=== PATIENT | female | born 1955 | race Caucasian/White ===

== ENCOUNTER 2024-09-12 13:35 | Outpatient (AMB) | payer BC, SELFPAY ==
--- NOTE | 2024-09-12 14:11 | MHC.OFFVIS ---
Vital Signs 09/12/24 14:31 Height 5 ft 5 in Weight 222 lb 10.67 oz BMI 37.0 BP 140/90 H Blood Pressure Location Lt brachial Position Sitting Respiration 16 Pulse 64 Pulse Source Pulse Oximeter Pulse Oximetry (%) 95 Oxygen Delivery Method Room Air Intake Visit Reasons: CTS/Arth/ATC MR RECIEVED Intake Note: Patient presents for CTS and Arthritis. My Arthiritis is about the same with pain level but both heels are more painful, especially my left heel. Allergies bivalves Allergy (Severe, Uncoded 09/12/24 14:21) Vomiting HPI HPI CTS/Arth/ATC MR RECIEVED: Details: Completed OT. Pain in dorsal hands radiating to elbows resolved with change in diet fobmat. [facility] PT initially improved lower back pain but then she plateaued. She is planning RFA. Hard to walk more than 15 minutes at a time. Working out 3 times a week. She has a personal property appraiser and is participating in physical therapy. When she was away on vacation is really she started experiencing bilateral heel pain. She reports that she has a new pair of shoes. She has constant heel pain currently. No joint swelling. [facility] Family History (Updated 09/12/24 @ 14:56 by YASMINE De Souza) Maternal Grandfather Rheumatoid arthritis Paternal Grandmother Osteoarthritis Social History (Updated 09/12/24 @ 14:31 by YASMINE De Souza) Household Members: Spouse Housing: House Alcohol intake: former Comment: OCC Patient Tobacco Use Status: Never used Tobacco Review of Systems Const All systems reviewed & are unremarkable except as noted in HPI and below Physical Exam Vital Signs: Last Vital Signs Pulse 64 09/12/24 14:31 Resp 16 09/12/24 14:31 BP 140/90 H 09/12/24 14:31 Pulse Ox 95 09/12/24 14:31 Oxygen Delivery Method Room Air 09/12/24 14:31 BMI result Body Mass Index 37.0 Const Other: General: Comfortable, obese. Skin: No lesions seen MSK: Tender to palpate bilateral heels localized to plantar aponeurosis. No ankle swelling noticed. No tenderness of midfoot. Paste planus noted bilateral. Assessment & Plan Assessment & Plan (1) Heel pain, bilateral: Comment: Chronic. Suspect heel spur is contributing. We discussed conservative management Code(s): M79.671 - Pain in right foot; M79.672 - Pain in left foot Category: Medical Plan: X-ray bilateral feet ordered She will rotate shoes Recommend [id number] inserts Labs for drug monitoring chronic NSAID ordered. After lab results are reviewed, I will change Celebrex back to meloxicam 15 mg daily I have asked her to communicate with her personal property appraiser and physical therapist about obtaining exercises for heel stretches Return to clinic in 3 months (2) Lumbar spondylolysis: Comment: Currently plateaued with physical therapy. She is working with [facility] with plan for radiofrequency ablation to better control pain and enable ambulating longer distances. Code(s): M43.06 - Spondylolysis, lumbar region Category: Medical Plan: Follow-up with [facility] with plan to try radiofrequency ablation Plan to change Celebrex back to meloxicam 15 mg daily after labs are reviewed for drug monitoring Continue home exercise program, working with physical therapist and personal property appraiser Encouraged weight loss. I recommend that she follow up with PCP for consideration of referral to weight management program at [facility] or [facility]. She did not have a good encounter with recent purchasing intern referral. 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) use of non-steroidal anti-inflammatories (NSAID) Creatinine Today M43.06 - Spondylolysis, lumbar region, Z79.1 - 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
[2024-09-12 14:31] VITALS: BP 140/90; PULSE 64; RESP 16; O2SAT 95; BMI 37.0
== END 2024-09-12 15:21 | disposition home or self-care (01) ==
PROVIDERS: PCP Internal Medicine; Visit Provider Internal Medicine Rheumatology
DX: M79.671 Pain in right foot (principal); M79.672 Pain in left foot; M43.06 Spondylolysis, lumbar region; Z79.1 Long term (current) use of non-steroidal anti-inflammatories (NSAID)
CPT/HCPCS: 99214

== ENCOUNTER → 2024-09-12 13:35 | Outpatient (BNVA) | payer BC, SELFPAY | PROVIDERS: PCP Internal Medicine; Visit Provider Internal Medicine Rheumatology ==

== ENCOUNTER 2024-09-22 10:06 | Outpatient (REF) | payer BC, SELFPAY ==
[2024-09-22 10:21] LABS: MANUAL DIFF FLAG NO
[2024-09-22 10:41] LABS: Basophils Percent Auto 0.4 % (0-2); Eosinophils Percent Auto 0.6 % (0-4); Hemoglobin 13.3 g/dl (12.0-16.0); Imm Gran Abs Auto 0.02 X10*3/uL (0.00-0.03); Imm Gran Pct Auto 0.4 % (0.0-0.4); Lymphocytes Absolute Auto 1.7 X10*3/uL (1.2-4.9); Lymphocytes Percent Auto 34.6 % (20-40); Mean Corpuscular HGB Conc 34.1 g/dl (31.0-35.0); Mean Corpuscular Hemoglobin 32.2 pg (27.0-33.0); Mean Corpuscular Volume 94.4 fL (80.0-98.0); Mean Platelet Volume 9.4 fL (9.4-12.3); Monocytes Absolute Auto 0.4 X10*3/uL (0.1-1.2); Monocytes Percent Auto 8.5 % (2-11); Neutrophils Absolute Auto 2.7 x10*3/uL (2.0-8.3); Neutrophils Percent Auto 55.5 % (45-73); Platelet Count 169 X10*3/uL (160-400); Red Blood Count 4.13 X10*6/uL (4.20-5.50); Red Cell Distribution Width 11.5 % (11.0-16.0); White Blood Count 4.8 X10*3/uL (4.8-10.8)
[2024-09-22 11:55] LABS: Alanine Aminotransferase 43 U/L (0-31); Aspartate Amino Transferase 32 U/L (5-31); Estimated Glomerular Filt Rate > 60
== END 2024-09-22 10:07 | disposition home or self-care (01) ==
LOC: HO.XRAY 10:06
PROVIDERS: PCP Internal Medicine; Visit Provider Internal Medicine Rheumatology
DX: M79.671 Pain in right foot (principal); M79.672 Pain in left foot; M43.06 Spondylolysis, lumbar region; Z79.1 Long term (current) use of non-steroidal anti-inflammatories (NSAID)
CPT/HCPCS: 36415; 73620; 82565; 84450; 84460; 85025

== ENCOUNTER 2024-12-13 14:02 | Outpatient (AMB) | payer BC, SELFPAY ==
--- NOTE | 2024-12-13 14:02 | A.OFFVIS_ITS ---
Vital Signs 12/13/24 14:03 Height 5 ft 5 in Weight 198 lb 13.711 oz BMI 33.1 BP 90/82 Blood Pressure Location Lt brachial Position Sitting Pulse 87 Pulse Source Pulse Oximeter Pulse Oximetry (%) 98 Oxygen Delivery Method Room Air Intake Visit Reasons: Follow Up 3mo Intake Note: Patient presents for CTS and Arthritis. Accompanied by: Self / Same As Patient Allergies bivalves Allergy (Severe, Uncoded 09/12/24 14:21) Vomiting HPI HPI Follow Up 3mo: Details: She continues to have back pain and foot pain limiting ambulation. At rest her pain is 2/10. When she walks her pain is 6/10. She has been having pain in her fingers and difficulty with mobility. She has been doing exercises that she learned from OT in the past. Diclofenac gel was ineffective. She is using hemp cream with benefit. Heat applied to hands helps but it is temporary. [facility] Family History Maternal Grandfather Rheumatoid arthritis Paternal Grandmother Osteoarthritis Social History Household Members: Spouse Housing: House Alcohol intake: former Comment: OCC Patient Tobacco Use Status: Never used Tobacco Review of Systems Const All systems reviewed & are unremarkable except as noted in HPI and below Physical Exam Vital Signs: Last Vital Signs Pulse 87 12/13/24 14:03 BP 90/82 12/13/24 14:03 Pulse Ox 98 12/13/24 14:03 Oxygen Delivery Method Room Air 12/13/24 14:03 BMI result Body Mass Index 33.1 Const Other: General: Comfortable, obese. Skin: No lesions seen MSK: Tender to palpate bilateral heels localized to plantar aponeurosis. No synovitis. No MTP tenderness. Pes planus noted bilateral. Tender right 2nd to 3rd PIP with slight synovitis present. Olya's nodes and Heberden nodes present. Results Reviewed Results Reviewed: Date of Service: 09/22/24 Procedure(s): XR foot LT 2V Accession Number(s): [id number] cc: NICKIE ROBLES MD; Gilbert Whelan MD~ EXAMINATION: XR BILATERAL FEET CLINICAL INFORMATION: Pain in right foot M79.671. Heel pain. LEFT foot pain. COMPARISON: None available. TECHNIQUE: AP, lateral, and oblique views of each foot. FINDINGS: RIGHT FOOT: Diffuse demineralization. Advanced degenerative changes in the first metatarsophalangeal joint with joint space narrowing and hypertrophic change. Degenerative changes in the interphalangeal joint of the toes, although visualization limited due to flexion of the second, third, fourth and fifth toes. Small dorsal and plantar calcaneal spurs. Fixation plate and screws incompletely imaged in the distal fibula and could be evaluated with dedicated views of the ankle/fibula. Moderate degenerative changes in the tarsometatarsal joints. LEFT FOOT: Diffuse demineralization. Advanced degenerative changes in the first metatarsophalangeal joint with joint space narrowing and hypertrophic change. Degenerative changes in the interphalangeal joint of the toes, although visualization limited due to flexion of the second, third, fourth and fifth toes. Small dorsal and plantar calcaneal spurs. Moderate degenerative changes in the tarsometatarsal joints. XR/XR foot LT 2V IMPRESSION: 1. Advanced degenerative changes bilateral first metatarsophalangeal joints. 2. Small bilateral dorsal and plantar calcaneal spurs. 3. Moderate degenerative changes in the tarsometatarsal joints bilaterally. 4. Fixation plate and screws incompletely imaged in the distal right fibula and could be evaluated with dedicated views of the ankle/fibula. Assessment & Plan Assessment & Plan (1) Transaminitis: Comment: Mild on 09/06/2024 labs. She reports that she has history of fatty liver. Unknown baseline liver function tests. Code(s): R74.01 - Elevation of levels of liver transaminase levels Category: Medical Plan: Patient will follow up with PCP in regards to prior liver function test results. 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 She has bilateral degenerative changes affecting 1st metatarsal joints, and tarsometatarsal joints. She also has bilateral dorsal plantar calcaneal spurs. Discussed diagnosis and conservative management. Code(s): M19.071 - Primary osteoarthritis, right ankle and foot; M19.072 - Primary osteoarthritis, left ankle and foot Category: Medical Plan: PT ordered to improve strength in feet and maintain mobility Wear supportive footwear. I recommend that she see second butler for custom insoles. Return to clinic in 3 months (3) Heel spur: Comment: Bilateral Code(s): M77.30 - Calcaneal spur, unspecified foot Category: Medical Qualifiers: Laterality: unspecified laterality Qualified Code(s): M77.30 - Calcaneal spur, unspecified foot Plan: Encouraged supportive footwear. I recommended custom insoles. She will see second butler for custom insoles. PT ordered Return to clinic in 3 months (4) Lumbar spondylolysis: Comment: Currently plateaued benefit with physical therapy. She is working with [facility] with plan for radiofrequency ablation to better control pain and enable ambulating longer distances. I encouraged her to schedule appointment to try procedure to better control pain so she could ambulate and walk longer distances. At this time she requires assistive aids with walker to ambulate and can not walk more than 2 blocks. She discontinued Celebrex and meloxicam, which improved IBD symptoms. She takes ibuprofen as needed for pain control. Code(s): M43.06 - Spondylolysis, lumbar region Category: Medical Plan: Follow-up with [facility] with plan to try radiofrequency ablation She will take ibuprofen as needed for pain control. If pain worsens, can consider alternative NSAID. Meloxicam and Celebrex exacerbated IBD. She is on PPI pantoprazole 40 mg daily and takes cholestyramine. Continue home exercise program, working with physical therapist and personal protection specialist Encouraged weight loss. She is currently working with PCP for weight loss and has recently started Wegovy. She has lost 20 lb. 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 Pain is uncontrolled despite diclofenac gel 1% and applying heat to hands. She continues to do exercises learned from OT in the past. Code(s): M19.041 - Primary osteoarthritis, right hand; M19.042 - Primary osteoarthritis, left hand Category: Medical Qualifiers: Osteoarthritis type: primary Qualified Code(s): M19.041 - Primary osteoarthritis, right hand; M19.042 - Primary osteoarthritis, left hand Plan: She will take ibuprofen 600 mg Q 8 hourly for a couple of days to reduce pain and swelling of joints. 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
[2024-12-13 14:03] VITALS: BP 90/82; PULSE 87; O2SAT 98; BMI 33.1
== END 2024-12-13 14:50 | disposition home or self-care (01) ==
PROVIDERS: PCP Internal Medicine; Visit Provider Internal Medicine Rheumatology
DX: R74.01 Elevation of levels of liver transaminase levels (principal); M19.071 Primary osteoarthritis, right ankle and foot; M19.072 Primary osteoarthritis, left ankle and foot; M77.30 Calcaneal spur, unspecified foot; M43.06 Spondylolysis, lumbar region; Z79.1 Long term (current) use of non-steroidal anti-inflammatories (NSAID); M19.041 Primary osteoarthritis, right hand; M19.042 Primary osteoarthritis, left hand
CPT/HCPCS: 99214

== ENCOUNTER 2024-12-13 14:02 | Outpatient (REF) | payer BC, SELFPAY ==
[2024-12-13 18:55] LABS: Alanine Aminotransferase 36 U/L (0-31); Albumin Level 4.6 g/dL (3.5-5.0); Alkaline Phosphatase 73 U/L (39-117); Aspartate Amino Transferase 30 U/L (5-31); Bilirubin Direct 0.3 mg/dL (0.0-0.5); Bilirubin Total 0.9 mg/dL (0.0-1.0); Total Protein 7.4 g/dL (6.5-8.0)
== END 2024-12-13 14:03 | disposition home or self-care (01) ==
LOC: HO.HKASLDS 14:02
PROVIDERS: PCP Internal Medicine; Visit Provider Internal Medicine Rheumatology
DX: R74.01 Elevation of levels of liver transaminase levels (principal)
CPT/HCPCS: 36415; 80076

== ENCOUNTER 2025-03-13 13:50 | Outpatient (AMB) | payer BC, SELFPAY ==
--- NOTE | 2025-03-13 13:52 | MHC.OFFVIS ---
Vital Signs 03/13/25 13:53 Height 5 ft 5 in Weight 180 lb 4 oz BMI 30.0 BP 120/82 Blood Pressure Location Rt brachial Position Sitting Pulse 86 Pulse Source Pulse Oximeter Pulse Oximetry (%) 98 Oxygen Delivery Method Room Air Intake Visit Reasons: 3 Months Intake Note: Patient presents for CTS and Arthritis. Accompanied by: Self / Same As Patient Allergies bivalves Allergy (Severe, Uncoded 09/12/24 14:21) Vomiting HPI HPI 3 Months: Details: Lost 45lb with zepbound. Pain in joints have improved. Uses tylenol 2 650mg x 2 every 8 hours. Takes 1 ibuprofen daily. She has new orthotics. PT called 3 weeks ago to schedule but she has not booked PT. [facility] Family History Maternal Grandfather Rheumatoid arthritis Paternal Grandmother Osteoarthritis Social History Household Members: Spouse Housing: House Alcohol intake: former Comment: OCC Patient Tobacco Use Status: Never used Tobacco Physical Exam Vital Signs: Last Vital Signs Pulse 86 03/13/25 13:53 BP 120/82 03/13/25 13:53 Pulse Ox 98 03/13/25 13:53 Oxygen Delivery Method Room Air 03/13/25 13:53 BMI result Body Mass Index 30.0 Const Other: General: Comfortable, obese. Skin: No lesions seen MSK: No synovitis. No MTP tenderness. Pes planus noted bilateral. She has slight synovitis present right 2nd to 3rd MTPs without pain on palpation. Olya's nodes and Heberden nodes present. 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 She recently received orthotics. She has slight synovitis of right 2nd and 3rd MTP without pain, which I am monitoring. If she continues to have synovitis next visit, I will pursue workup for inflammatory arthritis. Code(s): M19.071 - Primary osteoarthritis, right ankle and foot; M19.072 - Primary osteoarthritis, left ankle and foot Category: Medical Plan: If she does not have benefit with new orthotics, she will schedule PT ordered last visit to improve strength in feet and maintain mobility Wear supportive footwear with orthotics Return to clinic in 6 months (2) Heel spur: Comment: Bilateral. Code(s): M77.30 - Calcaneal spur, unspecified foot Category: Medical Qualifiers: Laterality: unspecified laterality Qualified Code(s): M77.30 - Calcaneal spur, unspecified foot Plan: Encouraged supportive footwear. She recently received orthotics. She will contact physical therapy to schedule appointment if she continues to have foot pain after giving orthotics time Return to clinic in 6 months (3) Lumbar spondylolysis: Comment: Constant, chronic back pain. Plateaued benefit with physical therapy. She is working with [facility] with plan for radiofrequency ablation to better control pain and enable ambulating longer distances but is holding plan at this time as she has been losing weight with bound. She hopes to lose 35 more lb and reassess lower back pain. Failed Celebrex and meloxicam, which exacerbated IBD. She takes Tylenol 1300 mg Q 8 hourly and ibuprofen as needed for pain control. Since losing weight, she has not required nabumetone. Code(s): M43.06 - Spondylolysis, lumbar region Category: Medical Plan: She will try to reduce Tylenol dose to 1 tablet every 8 hours prn pain Follow-up with [facility] if she would like to pursue radiofrequency ablation She will take ibuprofen as needed for pain control Continue weight loss management with PCP (4) halfway (current) use of non-steroidal anti-inflammatories (nsaid): Comment: She uses ibuprofen as needed Code(s): Z79.1 - halfway (current) use of non-steroidal anti-inflammatories (NSAID) Category: Medical Plan: Follow up with PCP in regards to transaminitis (5) Osteoarthritis of hands, bilateral: Comment: Clinical osteoarthritis diagnosis. Stable. Failed diclofenac gel. She continues to do exercises learned from OT in the past. 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
[2025-03-13 13:53] VITALS: BP 120/82; PULSE 86; O2SAT 98
--- OUTSIDE RECORDS SUMMARY | 2025-03-13 14:07 | XMS_ITS | Patient Health Record ---
Author Organization [facility] Address [address] [address] Care Team Providers Care Screen Printing Inspector Name Role Phone Kalyan Thomason Primary Care Provider BRICE Hough Unavailable [phone] Allergies Allergen (clinical drug ingredient) Drug/Non Drug Allergy documented on EMR Reaction Allergy Type Onset Date Status bivalves (uncoded) Unknown Allergy A ctive seasonal (uncoded) Unknown Allergy A ctive Reason For Referral No Information Medications Medication SIG (Take, Route, Frequency, Duration) Notes Start Date End Date Status Nabumetone Active Tylenol 8 Hour Arthritis Pain Active Cholestyramine 4 GM/DOSE 1 scoop mixed w ith water or non-carbonated drink Orally Once a day Active Vitamin D Active Multivitamin Active Probiotic Active Calcium Active Pantoprazole Sodium Active Lisinopril 40 MG 1 tablet Orally Once a day Active Zepbound Active PROzac 20 MG 1 capsule Orally Onc e a day Active Atorvastatin Calcium 40 MG 1 tablet Oral ly Once a day Active Problems Problem Type SNOMED Code ICD Code Onset Dates Problem Status W/U Status Risk Notes Problem [id number] Hallux rigidus, right foot (M20.21) Active confirmed Problem [id number] Hallux rigidus, left foot (M20.22) Active confirmed Problem [id number] 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) Active confirmed Problem [id number] 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) Active confirmed Vital Signs Height 5ft 6in in 01/11/2025 Weight 198.4 lbs 01/11/2025 BMI 32.02 kg/m2 01/11/2025 Encounters Encounter Location Date Provider Diagnosis [facility] [address] [address] 01/11/2025 BRICE DE LUNA Hallux rigidus, righ t foot M20.21 ; Hallux rigidus, left foot M20.22 ; Osteoarthritis of right subtalar joint M19.071 ; Osteoarthritis of left subtalar joint M19.072 and Arthrosis of midfoot, unspecified laterality M19.079 [facility] [address] [facility] [address] [place] [address] 01/12/2025 BRICE DE LUNA Assessments Encounter Date Diagnosis (ICD Code) Assessment Notes Treatment Notes Treatment Clinical Notes Section Notes 01/11/2025 Hallux rigidus, right foot (ICD-10 - M20.21) This is an outpatient visit for evaluation and management of an new patient, which required appropriate review of pertinent medical history, review of any previous imaging, review of all previous records, and examination and decision-making. Time was 45 minutes spent in review of all these facets including face to face discussion with the patient regarding my findings and in discussion of a current and future treatment plan. Three weightbearing radiographs of the right and left foot taken and reviewed. She has diffuse arthritic changes to both feet. Most notable around the 1st MTPJ and the subtalar joint. I discussed with her conservative options are better support and pain control. I discussed custom orthotics would help with the forefoot arthrosis, but not the rearfoot arthrosis. I discussed AFOs would help with both, but would be quite bulky in the shoe gear. She wished to proceed with orthotics. I discussed that this is an out of pocket cost. She understood. I will set this up with prosthetic and orthotics for her. She will continue follow up with rheum for pain management of the diffuse arthritic symptoms. I will see her back once she has the inserts. I encouraged her to call with any additional questions or concerns. 01/11/2025 Hallux rigidus, left foot (ICD-10 - M20.22) 01/11/2025 Osteoarthritis of right subtalar joint (ICD-10 - M19.071) 01/11/2025 Osteoarthritis of left subtalar joint (ICD-10 - M19.072) 01/11/2025 Arthrosis of midfoot, unspecified laterality (ICD-10 - M19.079) Plan Of Treatment No Information Medical (General) History Medical History History ICD Code Diffuse arthrosis of multiple areas high blood pressure high cholesterol depression IBS hiatal hernia post-cholecystectomy syndrome Osteoporosis Compression fracture of L1 and L4 GERD Surgical History Surgery Date(Month/Year) RT ankle ORIF LT knee replacement gall bladder removal Hospitalization History Reason Date(Month/Year) Gallbladder rupture with necrosis and pe ritonitis 07/2022
== END 2025-03-13 14:49 | disposition home or self-care (01) ==
LOC: HO.RHES 13:51
PROVIDERS: PCP Internal Medicine; Visit Provider Internal Medicine Rheumatology
DX: M19.071 Primary osteoarthritis, right ankle and foot (principal); M19.072 Primary osteoarthritis, left ankle and foot; M77.30 Calcaneal spur, unspecified foot; M43.06 Spondylolysis, lumbar region; Z79.1 Long term (current) use of non-steroidal anti-inflammatories (NSAID); M19.041 Primary osteoarthritis, right hand; M19.042 Primary osteoarthritis, left hand
CPT/HCPCS: 99213

== ENCOUNTER → 2025-03-13 13:50 | Outpatient (BNVA) | payer BC, SELFPAY | PROVIDERS: PCP Internal Medicine; Visit Provider Internal Medicine Rheumatology ==

== ENCOUNTER 2025-09-11 14:26 | Outpatient (AMB) | payer BC, SELFPAY ==
[2025-09-11 14:34] VITALS: BP 120/80; PULSE 82; O2SAT 99; BMI 27.3
--- NOTE | 2025-09-11 14:34 | MHC.OFFVIS ---
Vital Signs 09/11/25 14:34 Height 5 ft 5 in Weight 164 lb 3.91 oz BMI 27.3 BP 120/80 Blood Pressure Location Lt brachial Position Sitting Pulse 82 Pulse Source Pulse Oximeter Pulse Oximetry (%) 99 Oxygen Delivery Method Room Air Intake Visit Reasons: 6 months Intake Note: Patient presents for CTS and Arthritis. Accompanied by: Self / Same As Patient Allergies bivalves Allergy (Severe, Uncoded 09/12/24 14:21) Vomiting HPI HPI 6 months: Details: Lost weight with zepbound. She felt that her joints feel better with the weight loss. Recently she stretched her back and then started experiencing back pain. She is managing it with heating pad. After radiofrequency ablation trial she had increased pain. Takes ibuprofen 200mg BID and takes tylenol if needed for joint pain. PFSH Family History Maternal Grandfather Rheumatoid arthritis Paternal Grandmother Osteoarthritis Social History Household Members: Spouse Housing: House Alcohol intake: former Comment: OCC Patient Tobacco Use Status: Never used Tobacco Physical Exam Vital Signs: Last Vital Signs Pulse 82 09/11/25 14:34 BP 120/80 09/11/25 14:34 Pulse Ox 99 09/11/25 14:34 Oxygen Delivery Method Room Air 09/11/25 14:34 BMI result Body Mass Index 27.3 Const Other: General: Comfortable, obese. Skin: No lesions seen MSK: No synovitis. No MTP tenderness. Pes planus noted bilateral. Olya's nodes and Heberden nodes present. She has limited mobility of DIPJ knees and right thumb at IP joint. Localized tenderness to lumbar spinous process and right paraspinal muscles. 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 Code(s): M19.071 - Primary osteoarthritis, right ankle and foot; M19.072 - Primary osteoarthritis, left ankle and foot Category: Medical Plan: Wear supportive footwear with orthotics Return to clinic in 1 year sooner if needed (2) Heel spur: Comment: Bilateral. Code(s): M77.30 - Calcaneal spur, unspecified foot Category: Medical Qualifiers: Laterality: unspecified laterality Qualified Code(s): M77.30 - Calcaneal spur, unspecified foot Plan: Wear supportive footwear with orthotics Return to clinic in 1 year sooner if needed (3) Lumbar spondylolysis: Comment: Improved with weight loss. Prior to weight loss she had initial benefit with physical therapy but then it plateaued. She saw pain management at [facility] with plan for radiofrequency ablation to better control pain and enable ambulating longer distances. After trial for radiofrequency ablation she had increase pain. At this time she feels that her back pain is overall controlled despite her recent exacerbation with myofascial strain contributing. I recommended that she hold off on intervention with radiofrequency ablation at this time and reconsider it if her back pain worsens in the future. Patient agrees with plan. Failed Celebrex and meloxicam, which exacerbated IBD. She had no side effects on nabumetone but does not use it after weight loss. She takes Tylenol 1300 mg Q 8 hourly and ibuprofen as needed for pain control. Code(s): M43.06 - Spondylolysis, lumbar region Category: Medical Plan: Take Tylenol every 8 hours prn pain Take ibuprofen 200 mg b.i.d. PRN pain Continue weight loss management with PCP She will apply heat to her back If acute back pain does not improve in 1 week, she will call office. I will then prescribed cyclobenzaprine 5 mg q.h.s. (4) severity of illness coordinator (current) use of non-steroidal anti-inflammatories (nsaid): Comment: She uses ibuprofen as needed Code(s): Z79.1 - severity of illness coordinator (current) use of non-steroidal anti-inflammatories (NSAID) Category: Medical Plan: Follow up with PCP in regards to transaminitis (5) Osteoarthritis of hands, bilateral: Comment: leatha. Clinical diagnosis. Stable. Failed diclofenac gel. She completed OT in the past. 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
--- OUTSIDE RECORDS SUMMARY | 2025-09-11 18:20 | XMS_ITS | Patient Health Record ---
Author Organization [facility] Address [address] [place] [address] Care Team Providers Care Etcher Enameling Name Role Phone Kalyan Thomason Primary Care Provider BRICE Hough Unavailable [phone] Allergies Allergen (clinical drug ingredient) Drug/Non Drug Allergy documented on EMR Reaction Allergy Type Onset Date Status bivalves (uncoded) Unknown Allergy A ctive seasonal (uncoded) Unknown Allergy A ctive Reason For Referral No Information Medications Medication SIG (Take, Route, Frequency, Duration) Notes Start Date End Date Status Cholestyramine 4 GM/DOSE 1 scoop mixed w ith water or non-carbonated drink Orally Once a day Not-Taking Tylenol 8 Hour Arthritis Pain Active Multivitamin Active Vitamin D Active Calcium Active Probiotic Active Zepbound Active Pantoprazole Sodium Active Lisinopril 40 MG 1 tablet Orally Once a day Active Atorvastatin Calcium 40 MG 1 tablet Oral ly Once a day Active PROzac 20 MG 1 capsule Orally Onc e a day Active Nabumetone Not-Takin g Problems Problem Type SNOMED Code ICD Code Onset Dates Problem Status W/U Status Risk Notes Problem Acquired hallux rigidus (4117472) Hallux rigidus, right foot (M20.21) Active confirmed Problem Acquired hallux rigidus (3069241) Hallux rigidus, left foot (M20.22) Active confirmed Problem Osteoarthritis of right subtalar joint (6423146887026042 1) 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) Active confirmed Problem Osteoarthritis of left subtalar joint (9274431164923081 6) 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) Active confirmed Vital Signs Heart Rate 73 /min 06/08/2025 Temperature 97.6 degrees Fahrenheit 06/08/2025 Respiratory Rate 16 /min 06/08/2025 Height 5ft 6in in 06/08/2025 Weight 175.6 lbs 06/08/2025 BMI 28.34 kg/m2 06/08/2025 Encounters Encounter Location Date Provider Diagnosis [facility] [address] [address] 01/11/2025 BRICE DE LUNA Hallux rigidus, righ t foot M20.21 ; Hallux rigidus, left foot M20.22 ; Osteoarthritis of right subtalar joint M19.071 ; Osteoarthritis of left subtalar joint M19.072 and Arthrosis of midfoot, 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 She has the custom orthotics. They have helped with her rearfoot and midfoot pain. She still has residual symptoms to the great toe joints, but is able to manage it. She has diffuse arthritic changes to both feet. Most notable around the 1st MTPJ and the subtalar joint. I discussed with her conservative options are better support and pain control. She is doing well and will continue with the orthotics. We discussed signs and symptoms of when the orthotics will need replacement. She will follow back as needed. 06/08/2025 Hallux rigidus, left foot (ICD-10 - M20.22) 06/08/2025 Osteoarthritis of right subtalar joint (ICD-10 - M19.071) 01/11/2025 Osteoarthritis of right subtalar joint (ICD-10 - M19.071) 01/11/2025 Osteoarthritis of left subtalar joint (ICD-10 - M19.072) 06/08/2025 Osteoarthritis of left subtalar joint (ICD-10 - M19.072) 06/08/2025 Arthrosis of midfoot, unspecified laterality (ICD-10 - M19.079) 01/11/2025 Arthrosis of midfoot, unspecified laterality (ICD-10 [...]
== END 2025-09-11 15:24 | disposition home or self-care (01) ==
LOC: HO.RHES 14:27
PROVIDERS: PCP Internal Medicine; Visit Provider Internal Medicine Rheumatology
DX: M19.071 Primary osteoarthritis, right ankle and foot (principal); M19.072 Primary osteoarthritis, left ankle and foot; M77.30 Calcaneal spur, unspecified foot; M43.06 Spondylolysis, lumbar region; Z79.1 Long term (current) use of non-steroidal anti-inflammatories (NSAID); M19.041 Primary osteoarthritis, right hand; M19.042 Primary osteoarthritis, left hand
CPT/HCPCS: 99214